=== PATIENT | female | born 1985 | race Two or more races ===

== ENCOUNTER 2025-04-02 13:17 | Emergency (ER) | payer OTHER ==
[~2025-04-02] VITALS: Ht 160 cm; Wt 56.7 kg
[2025-04-02 14:20] VITALS: TEMP 98.1
[2025-04-02] MEDS: KETOROLAC TROMETHAMINE 15 MG/ML VIAL IM ONE (14:30)
[2025-04-02] MEDS ORDERED: ACETAMINOPHEN ES 500 MG TABLET ONE (15:32)
[2025-04-02] MEDS: ACETAMINOPHEN ES 500 MG TABLET PO ONE (15:34)
[2025-04-02] MEDS ORDERED: ACET-2030 PO (15:34)
[2025-04-02] MEDS ORDERED: KETO10TA2 PO (15:34)
[2025-04-02 15:49] VITALS: BP 110/62; O2SAT 99
== END 2025-04-02 15:49 | disposition home or self-care (01) ==
LOC: ER 13:33
DX: S93.492A Sprain of other ligament of left ankle, initial encounter (principal); Z88.6 Allergy status to analgesic agent; W18.39XA Other fall on same level, initial encounter; Y93.89 Activity, other specified; Y92.89 Other specified places as the place of occurrence of the external cause; Y99.8 Other external cause status